=== PATIENT | female | born 1935 | race Caucasian/White ===

== ENCOUNTER 2018-07-06 08:05 | Emergency (ER) | payer MEDICARE ==
[~2018-07-06] VITALS: Ht 157.5 cm; Wt 90.7 kg
[2018-07-06 08:05] VITALS: BP_SYST 143
--- NOTE | 2018-07-06 08:05 | NUR ---
BROUGHT IN BY [facility] AND PLACED IN BED #3, TRIAGED AND REPORT GIVEN TO CRISTOBAL
[2018-07-06] MEDS ORDERED: KETOROLAC TROMETHAMINE 30 MG VIAL IVP ONE (08:15)
--- NOTE | 2018-07-06 08:15 | NUR ---
Patient comes from [facility] via BLS transport, patient is AOx3 with forgetfulness from dementia. Patient comes in with complaint of back pain after a slip and fall in her home this morning. Patient has complaint of pain 8/10 to lower back. AROM in lower extremities with no loss of sensation, pulses regular. No other complaint or injury at this time.
--- NOTE | 2018-07-06 08:20 | NUR ---
DR Ralph at bedside for ER evaluation.
[2018-07-06 09:02] LABS: BASOPHILS % (AUTO) 0.5 % (0.0-2.0); EOSINOPHILS # (AUTO) 0.1 K/uL (0.0-0.4); EOSINOPHILS % (AUTO) 1.3 % (0.0-4.0); HEMATOCRIT 38.8 % (36-48); HEMOGLOBIN 12.8 g/dL (12.0-16.0); LYMPHOCYTES # (AUTO) 1.6 K/uL (1.0-5.5); LYMPHOCYTES % (AUTO) 18.8 % (20.5-51.5); MEAN CORPUSCULAR HEMOGLOBIN 29 pg (27-31); MEAN CORPUSCULAR HGB CONC 33 % (32-36); MEAN CORPUSCULAR VOLUME 88 fL (79.0-98.0); MONOCYTES # (AUTO) 0.5 K/uL (0.0-1.0); NEUTROPHILS # (AUTO) 6.1 K/uL (1.8-7.7); NEUTROPHILS % (AUTO) 73.4 % (40.0-70.0); PLATELET COUNT (AUTO) 225 K/uL (130-430); RED CELL DISTRIBUTION WIDTH 13.3 % (9.0-15.0); WHITE BLOOD COUNT (AUTO) 8.3 K/uL (4.8-10.8)
[2018-07-06 09:28] LABS: ANION GAP 11 (5-15); CALCIUM 8.9 mg/dL (8.4-11.0); CHLORIDE 102 mmol/L (98-107); CREATININE 1.28 mg/dL (0.55-1.30); GLUCOSE 145 mg/dL (70-99); POTASSIUM 3.6 mmol/L (3.5-5.1); SODIUM SERUM 139 mmol/L (136-145); UREA NITROGEN, BLOOD 26 mg/dL (8-21)
--- NOTE | 2018-07-06 09:30 | NUR ---
Medicated per MD orders. Will cont to monitor
[2018-07-06 09:33] LABS: ALANINE AMINOTRANSFERASE 21 U/L (12-78); ALBUMIN 3.4 g/dL (3.4-4.8); ASPARTATE AMINOTRANSFERASE 18 U/L (10-37); TOTAL BILIRUBIN 0.5 mg/dL (0.0-1.0)
[2018-07-06 09:47] LABS: BILIRUBIN,URINE NEGATIVE (NEGATIVE); BLOOD, URINE NEGATIVE (NEGATIVE); CLARITY/URINE SL HAZY (CLEAR); COLOR,URINE YELLOW (YELLOW); GLUCOSE,URINE NEGATIVE (NEGATIVE); KETONES,URINE NEGATIVE (NEGATIVE); LEUKOCYTE ESTERASE ,URINE NEGATIVE (NEGATIVE); NITRITE, URINE POSITIVE (NEGATIVE); PROTEIN URINE NEGATIVE (NEGATIVE); UROBILINOGEN,URINE 0.2 (0.2-1.0)
--- NOTE | 2018-07-06 10:16 | NUR ---
[facility] he would provide doctor with information and they would call us back to speak with Dr. Ralph.
--- NOTE | 2018-07-06 10:25 | NUR ---
[facility] Dr. Rock called back to speak with Dr. Ralph regarding care.
[2018-07-06 11:45] VITALS: BP_SYST 148
--- NOTE | 2018-07-06 11:45 | NUR ---
Patient transferred to [facility]. Is being transferred due patient and insurance request. Receiving facility has accepting physician and available space. ER physician has signed transfer form. Patient or responsible republican has agreed to transfer and signed form. Patient belongings inventoried and will be sent with patient. Copy of nursing notes, lab reports, EKG, Physicians Orders and X-rays to be sent with patient. Report called to Guillermo SOOD Charge Nurse at receiving facility. Receiving physician is Dr. Nava. [facility] ambulance service picked up patient via gurney, patient tolerated well with minimal discomfort. ETA to [place] 12:30pm
== END 2018-07-06 11:45 | disposition short-term general hospital (02) ==
LOC: SED 08:05
DX: S32.028A Other fracture of second lumbar vertebra, initial encounter for closed fracture (principal); E11.9 Type 2 diabetes mellitus without complications; Z88.8 Allergy status to other drugs, medicaments and biological substances; W19.XXXA Unspecified fall, initial encounter; Y93.89 Activity, other specified; Y92.89 Other specified places as the place of occurrence of the external cause; Y99.8 Other external cause status
CPT/HCPCS: 36415; 71045; 72100; 80053; 81003; 85025; 96374; 99285; J1885